=== PATIENT | male | born 1985 | race Caucasian/White ===

== ENCOUNTER 2019-11-08 03:35 | Emergency (ER) | payer OTHER ==
[~2019-11-08] VITALS: Ht 175.3 cm; Wt 66.2 kg
[2019-11-08 03:36] VITALS: BP 128/76
[2019-11-08] MEDS ORDERED: BUPIVACAINE HCL 0.5% 30 ML VIAL SC ONE (04:00)
[2019-11-08] MEDS ORDERED: LIDOCAINE W/EPINEPHRINE 1% 20ML VIAL SC ONE (04:00)
[2019-11-08] MEDS ORDERED: metroNIDAZOLE (FLAGYL) 500MG TABLET PO ONE (04:30)
[2019-11-08] MEDS ORDERED: CEPHALEXIN 500 MG CAP PO ONE (04:30)
[2019-11-08] MEDS ORDERED: FLAG500T PO (04:46)
[2019-11-08] MEDS ORDERED: KEFL500C17 PO (04:46)
== END 2019-11-08 04:53 | disposition home or self-care (01) ==
LOC: M ED 03:35
DX: L05.01 Pilonidal cyst with abscess (principal)

== ENCOUNTER → 2020-03-05 | Outpatient (CLI) | payer SELFPAY ==
[~2020-03-05] MED LIST: FLAG500T PO; KEFL500C17 PO
== END ==
LOC: M LABSMTC 13:32
PROVIDERS: ATTEND Pediatrics
DX: Z11.59 Encounter for screening for other viral diseases (principal)

== ENCOUNTER 2020-03-13 20:56 | Emergency (ER) | payer OTHER ==
[~2020-03-13] VITALS: Ht 175.3 cm; Wt 70.8 kg
[2020-03-13 20:56] VITALS: BP 133/82
[2020-03-13] MEDS ORDERED: ACETAMINOPHEN 500 MG TAB PO ONE (22:00)
== END 2020-03-13 22:05 | disposition home or self-care (01) ==
LOC: M ED 20:56
DX: B34.9 Viral infection, unspecified (principal); Z20.828 Contact with and (suspected) exposure to other viral communicable diseases; R50.9 Fever, unspecified; R05 Cough; R51.9 Headache, unspecified; J45.909 Unspecified asthma, uncomplicated; F17.200 Nicotine dependence, unspecified, uncomplicated
CPT/HCPCS: 99282; U0003

== ENCOUNTER 2020-03-15 17:39 | Emergency (ER) | payer OTHER ==
[~2020-03-15] VITALS: Ht 175.3 cm; Wt 72.7 kg
[2020-03-15 19:00] VITALS: BP 131/58
== END 2020-03-15 19:11 | disposition home or self-care (01) ==
LOC: M ED 17:39
DX: K61.1 Rectal abscess (principal); F17.200 Nicotine dependence, unspecified, uncomplicated

== ENCOUNTER 2020-03-28 01:59 | Emergency (ER) | payer OTHER ==
[~2020-03-28] VITALS: Ht 175.3 cm; Wt 68.6 kg
[2020-03-28] MEDS ORDERED: VENTAER INH (02:07)
[2020-03-28] MEDS ORDERED: PROAAER10 INH (02:07)
[2020-03-28] MEDS ORDERED: AUGM875T28 PO (07:05)
[2020-03-28] MEDS ORDERED: NORC1TAB7 PO (07:05)
[2020-03-28] MEDS ORDERED: IBUP80TA PO (07:05)
[2020-03-28] MEDS ORDERED: IBUPROFEN 600MG TAB PO ONE (07:15)
[2020-03-28] MEDS ORDERED: ACETAMINOPHEN TAB 650MG DOSE (2X325MG) PO ONE (07:15)
[2020-03-28] MEDS ORDERED: AUGMENTIN 875 MG TAB PO ONE (07:15)
[2020-03-28 07:25] VITALS: BP 119/69
== END 2020-03-28 07:29 | disposition home or self-care (01) ==
LOC: M ED 01:59
DX: K08.89 Other specified disorders of teeth and supporting structures (principal); K05.00 Acute gingivitis, plaque induced; J45.909 Unspecified asthma, uncomplicated

== ENCOUNTER 2020-05-18 11:54 | Emergency (ER) | payer OTHER ==
[~2020-05-18] VITALS: Ht 175.3 cm; Wt 70.3 kg
[~2020-05-18 11:54] MED LIST changes: +AUGM875T28 PO; +IBUP80TA PO; +NORC1TAB7 PO; +PROAAER10 INH; +VENTAER INH
--- NOTE | 2020-05-18 12:36 | REP ---
INDICATION: pain, limited rom COMPARISON: None. TECHNIQUE: Internal rotation, external rotation, and Y view. FINDINGS: No acute fracture or dislocation. The acromioclavicular and glenohumeral joints are intact. No periarticular calcifications or degenerative changes are appreciated. Sub acromial space is normal. Surrounding soft tissues are unremarkable. IMPRESSION: Normal right shoulder radiographs. <Electronically signed by Severino Bull > 05/18/20 [id number]
[2020-05-18] MEDS ORDERED: KETOROLAC TROMETHAMINE 10 MG TAB PO ONE (13:05)
[2020-05-18] MEDS ORDERED: CYCL5TAB PO (13:05)
[2020-05-18] MEDS ORDERED: NAPR-837 PO (13:05)
[2020-05-18 13:25] VITALS: BP 131/69
== END 2020-05-18 13:41 | disposition home or self-care (01) ==
LOC: M ED 11:54
DX: S43.51XA Sprain of right acromioclavicular joint, initial encounter (principal); X58.XXXA Exposure to other specified factors, initial encounter; Y92.9 Unspecified place or not applicable; Y93.9 Activity, unspecified; Y99.9 Unspecified external cause status; J45.909 Unspecified asthma, uncomplicated; F17.200 Nicotine dependence, unspecified, uncomplicated

== ENCOUNTER 2020-05-21 21:12 | Emergency (ER) | payer OTHER ==
[~2020-05-21] VITALS: Ht 175.3 cm; Wt 72.2 kg
[~2020-05-21 21:12] MED LIST changes: +CYCL5TAB PO; +NAPR-837 PO
[2020-05-21] MEDS ORDERED: NORCO 5/325MG TABLET (BULK FOR ED) PO ONE ×2 (22:25→22:40)
[2020-05-21] MEDS ORDERED: AUGMENTIN 875 MG TAB PO ONE (22:40)
[2020-05-21] MEDS ORDERED: IBUPROFEN 800 MG TAB PO ONE (22:40)
[2020-05-21] MEDS ORDERED: IBUP80TA PO (22:45)
[2020-05-21] MEDS ORDERED: HYDR-3713 PO (22:45)
[2020-05-21] MEDS ORDERED: AUGM875T28 PO (22:45)
[2020-05-21 22:57] VITALS: BP 138/85
== END 2020-05-21 23:00 | disposition home or self-care (01) ==
LOC: M ED 21:12
DX: L05.01 Pilonidal cyst with abscess (principal); J45.909 Unspecified asthma, uncomplicated; F17.200 Nicotine dependence, unspecified, uncomplicated

== ENCOUNTER 2020-12-11 20:34 | Emergency (ER) | payer OTHER ==
[~2020-12-11] VITALS: Ht 175.3 cm; Wt 67.3 kg
[2020-12-11 20:34] VITALS: BP 128/75
[~2020-12-11 20:34] MED LIST changes: +HYDR-3713 PO
== END 2020-12-11 22:22 | disposition left against medical advice (07) ==
LOC: M ED 20:34
DX: Z53.21 Procedure and treatment not carried out due to patient leaving prior to being seen by health care provider (principal)

== ENCOUNTER 2021-02-03 16:38 | Emergency (ER) | payer OTHER ==
[~2021-02-03] VITALS: Ht 175.3 cm; Wt 68.2 kg
--- OUTSIDE RECORDS SUMMARY | 2021-02-03 16:43 | CCD ---
Author Author [facility] Organization [facility] Address Unknown Phone Unavailable Support Name Relationship Address Phone KEVIN MAC Next Of Kin [address] [place] [address] UE Next Of Kin Unknown Unavailable SÁNCHEZCAMILA Gordon Next Of Kin [address] [place] [address] WTNDAILY Next Of Kin [address] [place] [address] GONZALOLORI Next Of Kin [address] [address] Ori Giang Next Of Kin Unknown KENDRA LORI Next Of Kin [address] [address] CAMILA SÁNCHEZ ECON [address] [address] Unavailable Ori Giang ECON [address] [place] [address] Re-disclosure Warning The records that you are about to access may contain information from federally-assisted alcohol or drug abuse programs. If such information is present, then the following federally mandated warning applies: This information has been disclosed to you from records protected by federal confidentiality rules (42 CFR part 2). The federal rules prohibit you from making any further disclosure of this information unless further disclosure is expressly permitted by the written consent of the person to whom it pertains or as otherwise permitted by 42 CFR part 2. A general authorization for the release of medical or other information is NOT sufficient for this purpose. The Federal rules restrict any use of the information to criminally investigate or prosecute any alcohol or drug abuse patient.The records that you are about to access may contain highly sensitive health information, the redisclosure of which is protected by Article 27-F of the [facility] Public Health law. If you continue you may have access to information: Regarding HIV / AIDS; Provided by facilities licensed or operated by the [facility] Office of Mental Health; or Provided by the [facility] Office for People With Developmental Disabilities. If such information is present, then the following [facility] mandated warning applies: This information has been disclosed to you from confidential records which are protected by state law. State law prohibits you from making any further disclosure of this information without the specific written consent of the person to whom it pertains, or as otherwise permitted by law. Any unauthorized further disclosure in violation of state law may result in a fine or longterm sentence or both. A general authorization for the release of medical or other information is NOT sufficient authorization for further disc losure. Family History Family Member Name Family Member Gender Family Member Status Date o f Status Description Data Source(s) Unknown Male Problem MEDENT ([facility]) () Immunizations Vaccine Date Status Description Data Source(s) COVID-19 VACCINE [employer] 09/11/2020 12:00:00 AM EDT completed [employer] Vaccine Series Complete: YESThis Data wa s Submitted to [facility] Via [employer]. COVID-19 VACCINE [employer] 08/21/2020 12:00:00 AM EDT completed [facility] Vaccine Series Complete: NOThis Data was Submitted to [facility] Via [employer]. Medications No Information Insurance Providers Payer name Policy type / Coverage type Policy ID Covered green party ID Covered green party's relationship to lindquist Policy Lindquist Plan Information ON LICENSE OF [facility]ITY [facility] [id number] SP [id number] ON LICENSE OF [facility] COMMUNITY PLAN [facility] [id number] SP [id number] SELF PAY ONLY [id number] SP [id number] ON LICENSE OF [facility] COMMUNITY PLAN XIX [id number] 18 [id number] [facility] Individual Policy 0 [id number] S elf 0 [facility] Communty Plan Medicaid [id number] Self [id number] [facility] COMMUNTY PLAN [id number] 18 11 [id number] MEDICAID [facility] [id number] MEDICAID -PHYSICIAN [id number] Medicaid [facility] Medicaid [id number] Self [id number] MEDICAID -CLINIC [id number] 18 [id number] PRIVATE PAY CO UNAVAILABLE 18 SYLVIA CHILD MEDICAID -O/P EMERGENCY ROOM [id number] 18 [id number] Medicaid [facility] Medicaid [id number] Self [id number] Private Pay Commercial [id number] Self [id number] Problems, Conditions, and Diagnoses No Information Surgeries/Procedures No Information Results ID Date Data Source [id number] 03/13/2020 09:44:00 PM EST [facility] Name Value Range Interpretation Code Description Data Joana rce(s) Supporting Document(s) SARS coronavirus 2 RNA [facility] This lab was ordered by [facility] and reported by [facility]. ID Date Data Source [id number] 03/05/2020 12:00:00 AM EST [facility] Name Value Range Interpretation Code Description Data Joana rce(s) Supporting Document(s) SARS-CoV-2 (COVID-19) RNA [Presence] in Respiratory specimen by LONNIE with probe [facility] This lab was ordered by [facility] and reported by [employer] Procedure Social History No Information
[2021-02-03] MEDS ORDERED: KETOROLAC 30 MG/ML 1ML VIAL IM ONE (18:15)
--- OUTSIDE RECORDS SUMMARY | 2021-02-03 18:48 | CCD ---
Author Author [facility] Organization [facility] Address Unknown Phone Unavailable Support Name Relationship Address Phone KEVIN MAC Next Of Kin [address] [place] [address] UE Next Of Kin Unknown Unavailable SÁNCHEZCAMILA Gordon Next Of Kin [address] [place] [address] WTNDAILY Next Of Kin [address] [place] [address] GONZALOLORI Next Of Kin [address] [address] Ori Giang Next Of Kin Unknown KENDRA LORI Next Of Kin [address] [address] CAMILA SÁNCHEZ ECON [address] [address] Unavailable Ori Giang ECON [address] [place] [address] Re-disclosure Warning The records that you are [...] is protected by Article 27-F of the [facility] Public Health law. If you continue you may have access to information: Regarding HIV / AIDS; Provided by facilities licensed or operated by the [facility] Office of Mental Health; or Provided by the [facility] Office for People With Developmental Disabilities. If such information is present, then the following [facility] mandated warning applies: This information has been [...] law may result in a fine or intermediate sentence or both. A general authorization for the release of medical or other information is NOT sufficient authorization for further disc losure. Family History Family Member Name Family Member Gender Family Member Status Date o f Status Description Data Source(s) Unknown Male Problem MEDENT ([facility]) () Immunizations Vaccine Date Status Description Data Source(s) COVID-19 VACCINE [employer] 09/11/2020 12:00:00 AM EDT completed [employer] Vaccine Series Complete: YESThis Data wa s Submitted to [facility] Via [employer]. COVID-19 VACCINE [employer] 08/21/2020 12:00:00 AM EDT completed [facility] Vaccine Series Complete: NOThis Data was Submitted to [facility] Via [employer]. Medications No Information Insurance Providers Payer name Policy type / Coverage type Policy ID Covered democrat ID Covered democrat's relationship to lindquist Policy Lindquist Plan Information [facility] COMM[facility] [id number] SP [id number] [facility] COMMUNITY PLAN [facility] [id number] SP [id number] SELF PAY ONLY [id number] SP [id number] [facility] COMMUNITY PLAN XIX [id number] 18 [id number] [facility] Individual Policy 0 [id number] S elf 0 [facility] Communty Plan Medicaid [id number] Self [id number] [facility] COMMUNTY PLAN [id number] 18 11 [id number] MEDICAID [facility] [id number] 18 G [id number] MEDICAID -PHYSICIAN [id number] 1 8 [id number] Medicaid [facility] Medicaid [id number] Self [id number] MEDICAID -CLINIC [id number] 18 [id number] PRIVATE PAY CO UNAVAILABLE 18 [place] CHILD MEDICAID -O/P EMERGENCY ROOM [id number] 18 [id number] Medicaid [facility] Medicaid [id number] Self [id number] Private Pay Commercial [id number] Self [id number] Problems, Conditions, and Diagnoses No Information Surgeries/Procedures No Information Results ID Date Data Source [id number] 03/13/2020 09:44:00 PM EST [facility] Name Value Range Interpretation Code Description Data Joana rce(s) Supporting Document(s) SARS coronavirus 2 RNA [facility] This lab was ordered by [facility] and reported by [facility]. ID Date Data Source [id number] 03/05/2020 12:00:00 AM EST [facility] Name Value Range Interpretation Code Description Data Joana rce(s) Supporting Document(s) SARS-CoV-2 (COVID-19) RNA [Presence] in Respiratory specimen by LONNIE with probe [facility] This lab was ordered by [facility] and reported by [employer]. Procedure Social History No Information
[2021-02-03] MEDS ORDERED: KETO10TAB PO (19:19)
[2021-02-03 19:54] VITALS: BP 132/80
== END 2021-02-03 19:56 | disposition home or self-care (01) ==
LOC: M ED 16:38
DX: K08.89 Other specified disorders of teeth and supporting structures (principal); G89.18 Other acute postprocedural pain; F17.200 Nicotine dependence, unspecified, uncomplicated
CPT/HCPCS: 96372; 99283; J1885

== ENCOUNTER 2021-06-09 00:23 | Emergency (ER) | payer OTHER ==
[~2021-06-09] VITALS: Ht 175.3 cm; Wt 69.1 kg
[2021-06-09 00:23] VITALS: BP 156/84
[~2021-06-09 00:23] MED LIST changes: +KETO10TAB PO
[2021-06-09] MEDS ORDERED: ACETAMINOPHEN TAB 650MG DOSE (2X325MG) PO ONE (01:40)
[2021-06-09 01:52] LABS: RSV AMPLIFICATION NEGATIVE (NEGATIVE)
== END 2021-06-09 01:50 | disposition left against medical advice (07) ==
LOC: M ED 00:23
DX: R50.9 Fever, unspecified (principal); Z53.9 Procedure and treatment not carried out, unspecified reason; F17.200 Nicotine dependence, unspecified, uncomplicated

== ENCOUNTER 2021-11-08 19:52 | Emergency (ER) | payer OTHER ==
[~2021-11-08] VITALS: Ht 175.3 cm; Wt 68.2 kg
[2021-11-08] MEDS ORDERED: ACETAMINOPHEN 325 MG TAB PO ONE (20:55)
[2021-11-08 22:09] VITALS: O2SAT 99
[2021-11-08 22:11] VITALS: BP 121/64
[2021-11-08] MEDS ORDERED: VENTAER INH (22:45)
== END 2021-11-08 22:52 | disposition home or self-care (01) ==
LOC: M ED 19:52
DX: U07.1 COVID-19 (principal); J45.909 Unspecified asthma, uncomplicated; F17.200 Nicotine dependence, unspecified, uncomplicated

== ENCOUNTER 2022-07-25 22:13 | Emergency (ER) | payer OTHER ==
[2022-07-26] MEDS ORDERED: IBUP80TA PO (01:24)
[2022-07-26] MEDS ORDERED: IBUPROFEN 800 MG TAB PO ONE (01:25)
[2022-07-26 01:46] VITALS: BP 159/99
== END 2022-07-26 01:47 | disposition home or self-care (01) ==
LOC: M ED 22:13
DX: S63.601A Unspecified sprain of right thumb, initial encounter (principal)

== ENCOUNTER → 2022-08-09 | Outpatient (REF) | payer OTHER ==
[2022-08-09 18:00] LABS: BASO % 0.6 % (0.0-1.0); EOS # 0.2 10^3/uL (0.0-0.5); EOS % 2.3 % (0.0-3.0); HEMATOCRIT 38.5 % (42.0-52.0); HEMOGLOBIN 13.4 g/dl (13.5-17.5); LYMPH # 2.2 10^3/uL (1.5-5.0); LYMPH % 33.8 % (24.0-44.0); MEAN CORPUSCULAR HEMOGLOBIN 31.2 pg (27.0-33.0); MEAN CORPUSCULAR HGB CONC 34.8 g/dl (32.0-36.5); MEAN CORPUSCULAR VOLUME 89.5 fl (80.0-96.0); MONO # 0.5 10^3/uL (0.0-0.8); MONO % 7.6 % (2.0-8.0); NEUTROPHILS # 3.6 10^3/uL (1.5-8.5); NEUTROPHILS % 55.4 % (36.0-66.0); PLATELET COUNT, AUTOMATED 268 10^3/uL (150-450); WHITE BLOOD COUNT 6.5 10^3/uL (4.0-10.0)
[2022-08-09 18:32] LABS: THYROID STIMULATING HORMONE 1.146 uIU/ML (0.55-4.78)
[2022-08-09 18:34] LABS: ALKALINE PHOSPHATASE 112 U/L (46-116); ALT/SGPT 18 U/L (7.0-40); AST/SGOT 26 U/L (<34); BILIRUBIN,TOTAL 0.3 MG/DL (0.3-1.2); BLOOD UREA NITROGEN 13 MG/DL (9-23); CALCIUM LEVEL 8.8 MG/DL (8.5-10.1); CARBON DIOXIDE LEVEL 27 MMOL/L (20-31); CHLORIDE LEVEL 106 MMOL/L (98-107); CHOLESTEROL LEVEL 157 MG/DL (<200); CHOLESTEROL RISK RATIO 3.12 (<5); CREATININE FOR GFR 0.85 MG/DL (0.70-1.30); GLOMERULAR FILTRATION RATE > 60.0 (>60); GLUCOSE, FASTING 99 MG/DL (60-100); HDL CHOLESTEROL 50.2 MG/DL (>40); NON-HDL-C 106.8 MG/DL; SODIUM LEVEL 142 MMOL/L (136-145); TOTAL 25(OH) VITAMIN D 24.5 NG/ML (20.0-100.0); TOTAL PROTEIN 6.8 G/DL (5.7-8.2); TRIGLYCERIDES LEVEL 54 MG/DL (<150)
[2022-08-09 18:35] LABS: HEMOGLOBIN A1c 5.1 % (4.0-6.0)
== END ==
LOC: M LAB REF 16:14
PROVIDERS: ATTEND Nurse Practitioner Family
DX: Z13.228 Encounter for screening for other metabolic disorders (principal)

== ENCOUNTER 2023-01-02 18:22 | Emergency (ER) | payer OTHER, SELFPAY ==
[~2023-01-02] VITALS: Ht 175.3 cm; Wt 70.9 kg
[2023-01-02] MEDS ORDERED: NAPR-885 PO (20:48)
[2023-01-02] MEDS ORDERED: CYCL-707 PO (20:48)
[2023-01-02] MEDS ORDERED: ACETAMINOPHEN TAB 650MG DOSE (2X325MG) PO ONE (20:50)
[2023-01-02] MEDS ORDERED: NAPROXEN 250 MG TAB PO ONE (20:50)
[2023-01-02 20:53] VITALS: BP 126/75; TEMP 97.6; O2SAT 98
== END 2023-01-02 20:56 | disposition home or self-care (01) ==
LOC: M ED 18:22
DX: M75.32 Calcific tendinitis of left shoulder (principal); X50.0XXA Overexertion from strenuous movement or load, initial encounter; F17.200 Nicotine dependence, unspecified, uncomplicated; J45.909 Unspecified asthma, uncomplicated; Z79.1 Long term (current) use of non-steroidal anti-inflammatories (NSAID); Z79.891 Long term (current) use of opiate analgesic

== ENCOUNTER 2023-01-14 15:23 | Emergency (ER) | payer OTHER, SELFPAY ==
[~2023-01-14] VITALS: Ht 175.3 cm; Wt 70.0 kg
[~2023-01-14 15:23] MED LIST changes: +CYCL-707 PO; +NAPR-885 PO
[2023-01-14] MEDS ORDERED: LIDOCAINE W/EPINEPHRINE 1% 20ML VIAL SC ONE (17:00)
[2023-01-14] MEDS ORDERED: BACT800T5 PO (17:24)
[2023-01-14 18:02] VITALS: BP 126/71; TEMP 97.8; O2SAT 99
== END 2023-01-14 18:03 | disposition home or self-care (01) ==
LOC: M ED 15:23
DX: L05.01 Pilonidal cyst with abscess (principal); F90.9 Attention-deficit hyperactivity disorder, unspecified type; F31.9 Bipolar disorder, unspecified; J45.909 Unspecified asthma, uncomplicated; F17.200 Nicotine dependence, unspecified, uncomplicated; F10.10 Alcohol abuse, uncomplicated; Z79.1 Long term (current) use of non-steroidal anti-inflammatories (NSAID); Z79.2 Long term (current) use of antibiotics

== ENCOUNTER 2023-02-19 17:35 | Emergency (ER) | payer OTHER, SELFPAY ==
[~2023-02-19] VITALS: Ht 177.8 cm; Wt 69.6 kg
[~2023-02-19 17:35] MED LIST changes: +BACT800T5 PO
[2023-02-19] MEDS ORDERED: ALBU8.5H (17:46)
[2023-02-19 20:20] VITALS: BP 131/68; TEMP 98; O2SAT 99
== END 2023-02-19 20:20 | disposition home or self-care (01) ==
LOC: M ED 17:35
DX: U07.1 COVID-19 (principal); J45.909 Unspecified asthma, uncomplicated; F17.200 Nicotine dependence, unspecified, uncomplicated; F10.10 Alcohol abuse, uncomplicated; Z79.52 Long term (current) use of systemic steroids; Z79.1 Long term (current) use of non-steroidal anti-inflammatories (NSAID)

== ENCOUNTER → 2023-11-27 | Outpatient (REF) ==
[~2023-11-27] MED LIST changes: +ALBU8.5H
[2023-11-28 12:31] LABS: RUBEOLA IgG ANTIBODY > 300.00 AU/mL (>16.49)
== END ==
LOC: M LAB 13:50
PROVIDERS: ATTEND Family Medicine
DX: Z01.89 Encounter for other specified special examinations (principal)

== ENCOUNTER 2024-12-30 19:53 | Emergency (ER) | payer BC ==
[~2024-12-30] VITALS: Ht 175.3 cm; Wt 68.9 kg
[~2024-12-30 19:53] MED LIST changes: -CYCL5TAB PO; +CYCL5TAB4 PO; +IBUP600T42 PO
[2024-12-30 19:55] VITALS: BP 138/85; TEMP 97.1; O2SAT 100
== END 2024-12-30 20:44 | disposition home or self-care (01) ==
LOC: M ED 19:53
DX: H61.21 Impacted cerumen, right ear (principal); F17.200 Nicotine dependence, unspecified, uncomplicated; Z79.52 Long term (current) use of systemic steroids; Z79.1 Long term (current) use of non-steroidal anti-inflammatories (NSAID)